=== PATIENT | female | born 1985 | race Caucasian/White ===

== ENCOUNTER 2017-01-12 10:44 | Emergency (ER) | payer MEDICAID ==
[~2017-01-12] VITALS: Ht 162.6 cm; Wt 103.8 kg
[2017-01-12 10:51] VITALS: BP 127/94
[2017-01-12] MEDS ORDERED: SODIUM CHLORIDE FLUSH 10ML SYR IVF ONE (11:30)
[2017-01-12] MEDS ORDERED: SODIUM CHLORIDE 0.9% 1,000ML IVBOLUS ONE (11:30)
[2017-01-12] MEDS ORDERED: ASPIRIN 81 MG TABLET CHEW PO ONE (11:30)
[2017-01-12 12:09] LABS: ASPARTATE AMINO TRANSFERASE 22 U/L (15-37); BLOOD UREA NITROGEN 16 mg/dL (7-18)
[2017-01-12 12:15] LABS: IS PT STATUS REG ER OR PRE ER? YES
== END 2017-01-12 13:18 | disposition home or self-care (01) ==
LOC: ED 11:12
DX: R07.89 Other chest pain (principal); R11.2 Nausea with vomiting, unspecified
CPT/HCPCS: 36415; 71010; 76700; 80053; 83690; 84484; 85025; 93005; 99285

== ENCOUNTER 2017-05-17 08:07 | Emergency (ER) | payer MEDICAID ==
[~2017-05-17] VITALS: Ht 160 cm; Wt 109.0 kg
[2017-05-17 08:09] VITALS: BP 130/80
[2017-05-17] MEDS ORDERED: KETOROLAC 30 MG/1 ML ONE (09:17)
[2017-05-17] MEDS ORDERED: METHOCARBAMOL 750 MG TABLET ONE (09:18)
[2017-05-17] MEDS ORDERED: HYDROcodone/APAP 5/325 TABLET ONE (09:18)
[2017-05-17] MEDS ORDERED: METHOCARBAMOL 750 MG TABLET PO ONE (09:30)
[2017-05-17] MEDS ORDERED: HYDROcodone/APAP 5/325 TABLET PO ONE (09:30)
[2017-05-17] MEDS ORDERED: KETOROLAC 30 MG/1 ML IM ONE (09:30)
== END 2017-05-17 10:12 | disposition home or self-care (01) ==
LOC: ED 09:14
DX: M54.42 Lumbago with sciatica, left side (principal); M46.1 Sacroiliitis, not elsewhere classified; G89.29 Other chronic pain
CPT/HCPCS: 96372; 99283; J1885

== ENCOUNTER 2017-07-02 18:17 | Emergency (ER) | payer MEDICAID ==
[~2017-07-02] VITALS: Ht 160 cm; Wt 106.8 kg
[2017-07-02 18:18] VITALS: BP 139/85
[2017-07-02] MEDS ORDERED: METHOCARBAMOL 750 MG TABLET ONE (18:58)
[2017-07-02] MEDS ORDERED: KETOROLAC 30 MG/1 ML ONE (18:58)
[2017-07-02] MEDS ORDERED: KETOROLAC 30 MG/1 ML IM ONE (19:00)
[2017-07-02] MEDS ORDERED: METHOCARBAMOL 750 MG TABLET PO ONE (19:00)
== END 2017-07-02 20:19 | disposition home or self-care (01) ==
LOC: ED 20:05
DX: S40.011A Contusion of right shoulder, initial encounter (principal); S30.1XXA Contusion of abdominal wall, initial encounter; S30.0XXA Contusion of lower back and pelvis, initial encounter; G89.11 Acute pain due to trauma; Z88.0 Allergy status to penicillin; Z88.8 Allergy status to other drugs, medicaments and biological substances; W01.0XXA Fall on same level from slipping, tripping and stumbling without subsequent striking against object, initial encounter; Y93.89 Activity, other specified; Y92.89 Other specified places as the place of occurrence of the external cause; Y99.8 Other external cause status
CPT/HCPCS: 72050; 72072; 72110; 73030; 73502; 96372; 99284; J1885

== ENCOUNTER 2017-11-07 14:58 | Emergency (ER) | payer MEDICAID ==
[~2017-11-07] VITALS: Ht 160 cm; Wt 108.0 kg
[2017-11-07] MEDS ORDERED: DEXAMETHASONE 4 MG/ML, 5ML ONE (15:44)
[2017-11-07] MEDS ORDERED: OXYcodone/APAP 10/325MG TABLET ONE (15:53)
[2017-11-07] MEDS ORDERED: BACITRACIN ZINC OINT 500U/GM, 0.9 GM ONE (15:56)
[2017-11-07] MEDS ORDERED: DEXAMETHASONE 4 MG/ML, 1ML IM ONE (16:00)
[2017-11-07] MEDS ORDERED: OXYcodone/APAP 10/325MG TABLET PO ONE (16:00)
[2017-11-07 16:31] VITALS: BP 122/70
== END 2017-11-07 16:40 | disposition home or self-care (01) ==
LOC: ED 15:30
DX: M54.16 Radiculopathy, lumbar region (principal); M54.32 Sciatica, left side
CPT/HCPCS: 93005; 96372; 99283; J1100

== ENCOUNTER → 2017-12-06 | Outpatient (CLI) | payer MEDICAID ==
[~2017-12-06] MED LIST: GADOBUTROL 10 MMOL/10 ML PFS ONE
== END ==
LOC: CFH 15:09
PROVIDERS: ATTEND Nurse Practitioner Critical Care Medicine
DX: M48.07 Spinal stenosis, lumbosacral region (principal); M51.16 Intervertebral disc disorders with radiculopathy, lumbar region
CPT/HCPCS: 72158; A9585

== ENCOUNTER 2018-08-28 10:33 | Emergency (ER) | payer SELFPAY ==
[~2018-08-28] VITALS: Ht 160 cm; Wt 106.3 kg
[2018-08-28 10:52] VITALS: BP 123/79
[2018-08-28] MEDS ORDERED: DIAZEPAM 5 MG TABLET ONE (11:26)
[2018-08-28] MEDS ORDERED: KETOROLAC 30 MG/1 ML ONE (11:26)
[2018-08-28] MEDS ORDERED: DIAZEPAM 5 MG TABLET PO ONE (11:30)
[2018-08-28] MEDS ORDERED: KETOROLAC 30 MG/1 ML IM ONE (11:30)
== END 2018-08-28 12:28 | disposition home or self-care (01) ==
LOC: ED 12:15
DX: S16.1XXA Strain of muscle, fascia and tendon at neck level, initial encounter (principal); S39.012A Strain of muscle, fascia and tendon of lower back, initial encounter; F17.200 Nicotine dependence, unspecified, uncomplicated; G89.29 Other chronic pain; V49.49XA Driver injured in collision with other motor vehicles in traffic accident, initial encounter; Y93.89 Activity, other specified; Y92.89 Other specified places as the place of occurrence of the external cause; Y99.8 Other external cause status
CPT/HCPCS: 72050; 72110; 96372; 99284; J1885

== ENCOUNTER 2018-09-01 12:30 | Emergency (ER) | payer SELFPAY ==
[~2018-09-01] VITALS: Ht 160 cm; Wt 107.4 kg
[2018-09-01] MEDS ORDERED: SODIUM CHLORIDE FLUSH 10ML SYR IVF ONE (13:00)
[2018-09-01] MEDS ORDERED: PROCHLORPERAZINE 5 MG/ML, 2ML IVPush ONE (13:00)
[2018-09-01] MEDS ORDERED: DIPHENHYDRAMINE 50 MG/ML, 1ML IVPush ONE (13:00)
[2018-09-01] MEDS ORDERED: PROCHLORPERAZINE 5 MG/ML, 2ML ONE (13:28)
[2018-09-01] MEDS ORDERED: MORPHINE SULFATE 4 MG/ML, 1ML IVPush PRN (14:00)
[2018-09-01] MEDS ORDERED: MORPHINE SULFATE 4 MG/ML, 1ML ONE (14:06)
[2018-09-01 15:48] VITALS: BP 102/46
== END 2018-09-01 17:28 | disposition home or self-care (01) ==
LOC: ED 14:39
DX: G44.319 Acute post-traumatic headache, not intractable (principal); E66.9 Obesity, unspecified; Z68.41 Body mass index [BMI] 40.0-44.9, adult; M54.30 Sciatica, unspecified side
CPT/HCPCS: 70450; 70551; 96374; 96375; 99284; J0780; J1200

== ENCOUNTER 2019-05-02 06:17 | Emergency (ER) | payer MEDICAID, OTHER ==
[~2019-05-02] VITALS: Ht 160 cm; Wt 107.0 kg
--- NOTE | 2019-05-02 06:33 | NUR ---
assessment made. PA at bedside.
[2019-05-02] MEDS ORDERED: KETOROLAC 30 MG/1 ML ONE (06:47)
--- NOTE | 2019-05-02 06:50 | NUR ---
IV placed. medicated.
--- NOTE | 2019-05-02 06:55 | NUR ---
OBTAINED REPORT, CARE OF PT ASSUMED.
[2019-05-02] MEDS ORDERED: METHOCARBAMOL 1,000 MG in DEXTROSE 5% 100 ML IV ONE (07:00)
[2019-05-02] MEDS ORDERED: KETOROLAC 30 MG/1 ML IVPush ONE (07:00)
--- NOTE | 2019-05-02 07:00 | NUR ---
report to Daniel RN's
--- NOTE | 2019-05-02 07:13 | NUR ---
PT SAYS SHE IS IN 10/10 PAIN. PT MEDICATED FOR PAIN. ALISTAIR POWER EDUCATED THE PT REGARDING BREATHING TECHNIQUES, THIS APPEARS TO HAVE CALMED PT. PT IS NO LONGER CRYING OUT AND IS PRACTICING THE BREATHING TECHNIQUES. VSS.
[2019-05-02] MEDS ORDERED: OXYcodone/APAP 10/325MG TABLET PO ONE (07:30)
--- NOTE | 2019-05-02 07:30 | NUR ---
SPOKE WITH MD, REPORTED THAT PT WAS STILL IN 10/10 PAIN, DESPITE MULTIPLE PAIN INTERVENTIONS. MD ORDERED PERC 10. MED GIVEN, WILL REASSESS IN 30 MINUTES. VSS.
[2019-05-02] MEDS ORDERED: OXYcodone/APAP 10/325MG TABLET ONE (07:43)
--- NOTE | 2019-05-02 08:20 | NUR ---
PT GIVEN A PERC 10 APPOX 30 MINUTES AGO FOR HER REPORT OF 10/10 PAIN. AT TIME OF COMPUTER AIDED DESIGN OPERATOR, PT WAS TEARFUL AND LOUDLY MOANING. PT IS NOW SLEEPING AND HAD TO BE TOUCHED TO BE WOKED UP. I WOKE UP PT TO ASSESS PAIN - SHE REPORTS A 7/10. VSS.
--- NOTE | 2019-05-02 08:32 | NUR ---
PT SLEEPING WITH EAR PLUGS IN.
--- NOTE | 2019-05-02 08:55 | NUR ---
SPOKE WITH MD, REPORTED THAT PT APPEARED TO HAVE A MARKED DECREASE IN PAIN, HAS BEEN SLEEPING PEACEFULLY SINCE RECEIVING THE PERC. POC IS FOR DISCHARGE.
[2019-05-02 09:12] VITALS: BP 140/83
--- NOTE | 2019-05-02 09:15 | NUR ---
Patient given discharge instructions and they have confirmed that they understand the instructions. Patient ambulatory with steady gait. Pt instructed not to drive due to narcotic admin, pt agrees. Pt called ride.
== END 2019-05-02 09:17 | disposition home or self-care (01) ==
LOC: ED 07:35
DX: S39.012A Strain of muscle, fascia and tendon of lower back, initial encounter (principal); S33.5XXA Sprain of ligaments of lumbar spine, initial encounter; M54.32 Sciatica, left side; M46.1 Sacroiliitis, not elsewhere classified; G89.29 Other chronic pain; X58.XXXA Exposure to other specified factors, initial encounter; Y93.89 Activity, other specified; Y92.89 Other specified places as the place of occurrence of the external cause; Y99.8 Other external cause status
CPT/HCPCS: 96365; 96372; 99283; J1885; J2800

== ENCOUNTER 2021-05-08 17:07 | Emergency (ER) | payer MEDICAID ==
[~2021-05-08] VITALS: Ht 160 cm; Wt 109.0 kg
[2021-05-08 17:22] VITALS: BP 136/88
[2021-05-08] MEDS ORDERED: BACITRACIN ZINC OINT 500U/GM, 0.9 GM ONE (18:11)
[2021-05-08] MEDS ORDERED: DIPH,PERTUSS(ACELL),TET VAC/PF 0.5 ML IM-VACC ONE ×2 (18:30→18:32)
== END 2021-05-08 18:46 | disposition home or self-care (01) ==
LOC: ED 18:30
DX: S61.411A Laceration without foreign body of right hand, initial encounter (principal); R00.0 Tachycardia, unspecified; F17.210 Nicotine dependence, cigarettes, uncomplicated; G89.29 Other chronic pain; W26.9XXA Contact with unspecified sharp object(s), initial encounter; Y93.89 Activity, other specified; Y92.89 Other specified places as the place of occurrence of the external cause; Y99.8 Other external cause status
CPT/HCPCS: 90471; 90715; 99283

== ENCOUNTER 2021-07-05 14:07 | Emergency (ER) | payer MEDICAID ==
[~2021-07-05] VITALS: Ht 160 cm; Wt 107.0 kg
[2021-07-05 14:16] VITALS: BP 139/79
[2021-07-05] MEDS ORDERED: DIPH,PERTUSS(ACELL),TET VAC/PF 0.5 ML IM-VACC ONE (14:30)
[2021-07-05] MEDS ORDERED: LIDOCAINE-MPF 1%, 5ML ONE (15:48)
--- NOTE | 2021-07-05 16:16 | NUR ---
PT REFUSED TETANUS VACCINE STATING SHE HAS HAD IT WITHIN THE LAST 5 YEARS. PT VERBALIZED UNDERSTANDING TO DC INSTRUCTIONS. AMBULATORY TO CHECKOUT C STEADY GAIT.
== END 2021-07-05 16:21 | disposition home or self-care (01) ==
LOC: ED 16:00
DX: G89.11 Acute pain due to trauma (principal); M79.644 Pain in right finger(s); Z89.021 Acquired absence of right finger(s); X58.XXXA Exposure to other specified factors, initial encounter; Y93.89 Activity, other specified; Y92.009 Unspecified place in unspecified non-institutional (private) residence as the place of occurrence of the external cause; Y99.8 Other external cause status
CPT/HCPCS: 64450; 99284